=== PATIENT | male | born 1955 | race Caucasian/White ===

== ENCOUNTER 2019-06-13 11:54 | Emergency (ER) | payer MEDICAID ==
[~2019-06-13] VITALS: Ht 180.3 cm; Wt 90.9 kg
[~2019-06-13 11:54] MED LIST: ASPI-611 PO; LISI10TA4 PO; TRAM50TA2 PO
[2019-06-13 12:09] VITALS: BP 120/66
== END 2019-06-13 12:25 ==
LOC: ER 11:54
DX: M25.551 Pain in right hip (principal); F10.99 Alcohol use, unspecified with unspecified alcohol-induced disorder; Z79.82 Long term (current) use of aspirin; Z79.899 Other long term (current) drug therapy; V89.2XXA Person injured in unspecified motor-vehicle accident, traffic, initial encounter; Y93.89 Activity, other specified; Y92.488 Other paved roadways as the place of occurrence of the external cause; Y99.8 Other external cause status; Y90.9 Presence of alcohol in blood, level not specified
CPT/HCPCS: 99283